=== PATIENT | female | born 1985 | race Two or more races ===

== ENCOUNTER 2025-10-25 10:52 | Outpatient (AMB) | payer OTHER, SELFPAY ==
--- NOTE | 2025-10-25 10:57 | A.OFFVIS_ITS ---
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 Her pain management history is extensive and includes physical therapy, pain management injections 15 years ago, and lumbar sympathetic blocks in 2004 at [facility], which provided temporary relief. She has undergone multiple procedures for her kidney-related pain, including nerve ablation around the kidney 4-5 years ago in [place], and another scraping procedure. She has a history of using pain pumps, including external ones that repeatedly came out and an intrathecal pain pump that was removed after 4-5 months due to a bad infection and a split catheter more than 15 years ago. Her current pain medications, which include oxycodone, Oxycontin, gabapentin and tizanidine are prescribed by her primary care provider and offer partial relief. She experiences opioid-induced constipation, which is managed with Linzess. 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 She has chronic right knee pain due to osteoarthritis and chondromalacia and has been told she needs a knee replacement but is too young. Her BMI is 45, and she has been advised to lose weight. A lumbar MRI showed mild degenerative disc disease at L5-S1 without significant central or neuroforaminal stenosis. Pain Description - Location: Pain is localized to the right lower back and radiates up to the right flank. - Quality: The pain is described as sharp, burning, pulsing, throbbing, and aching, with associated arch tightness. - Severity: Pain is rated as 9/10 in the morning and at night, improving to 5/10 during the midday with medication. - Onset and Timing: The pain has been chronic for years, starting around 2003, and is constant. - Exacerbating Factors: Pain is worsened by walking, standing, sitting, any movement, coughing, sneezing, and bending down. - Relieving Factors: Pain is partially relieved by her opioid medications, including Oxycontin, gabapentin, tizanidine, and oxycodone. - Associated Features: The patient avoids sleeping on her right side due to pain. - She has a history of the area turning purple and appearing more swollen than the left side. Pain Management - Analgesia: The patient is on chronic opioid therapy with Oxycontin, gabapentin, tizanidine and oxycodone, which she reports provides partial relief. - Her pain level ranges from 5/10 to 9/10. - Activities of Daily Living: Pain interferes with walking, standing, and sitting. - She avoids sleeping on her right side due to pain. - Adverse Effects: She reports constipation as a side effect of her opioid medications, for which she takes Linzess. - Aberrant Drug-Related Behaviors: No aberrant behaviors were discussed; her opioids are prescribed by her primary care physician. - Affect: The impact of pain affects her mood, social interactions and quality of life. 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 Localized osteoarthritis of right knee IBS (irritable bowel syndrome) Family history of cancer IUD (intrauterine device) in place Atypical squamous cells of undetermined significance (ASCUS) on Papanicolaou smear of cervix Asthma Alport syndrome Hypercholesterolemia Hypothyroidism Recurrent urinary tract infection Surgical History History of renal ablation S/P thoracic surgical sympathectomy Hx laparoscopic cholecystectomy Social History Alcohol intake: never Patient Tobacco Use Status: Never used Tobacco Review of Systems Narrative - Musculoskeletal: Reports chronic, constant pain in the right lower back and flank, described as sharp, burning, aching, pulsing, and throbbing. - Reports pain with bending down. - Reports chronic right knee pain. - Genitourinary: Reports recurrent UTIs. - Reports increased flank pain with urination due to the need to push. - Integumentary: Reports a history of the right flank area turning purple and appearing swollen. Const All systems reviewed & are unremarkable except as noted in HPI and below Physical Exam Vital Signs: Last Vital Signs Pulse 115 H 10/25/25 11:06 BP 129/80 10/25/25 11:06 Pulse Ox 98 10/25/25 11:06 Oxygen Delivery Method Room Air 10/25/25 11:06 BMI result Body Mass Index 45.2 General: Appears afebrile. Alert and oriented. Mood and affect appropriate. Follows and participates in conversation appropriately. Respiratory effort is unlabored. No cough. Able to transition from sit to stand unassisted. Ambulates with bilaterally normal heel strike and toe off. General: Yes CVA tenderness (right) Back/Spine/Pelvis Other: Limited lumbar ROM due to pain. Inspection reveals the right flank appears slightly more swollen than the left. On palpation, there is significant tenderness and allodynia over the right flank. No skin discolorations or temperature differences noted. Lumbar flexion and extension reproduces right sided low back and flank pain. Back: CVA tenderness (right) Cervical Spine: cervical ROM normal and No Cervical spine tenderness Thoracic/Lumbar Spine: thoracic and lumbar spine normal to inspection, Lasegue's sign negative, straight leg raise negative bilaterally, pain with thoraco-lumbar ROM, paraspinal muscle tenderness on the right in the upper lumbar and in the mid lumbar, thoraco-lumbar ROM limited, No thoracic spinal tenderness and No lumbar spinal tenderness Sacroiliac joints: bilaterally Results Reviewed Results Reviewed: Assessment & Plan Assessment & Plan (1) CRPS (complex regional pain syndrome type I): Code(s): G90.50 - Complex regional pain syndrome I, unspecified Category: Medical (2) Loin pain hematuria syndrome: Code(s): M54.50 - Low back pain, unspecified; R31.9 - Hematuria, unspecified Category: Medical (3) Chronic pain syndrome: Code(s): G89.4 - Chronic pain syndrome Category: Medical (4) technician terminal and repeater (current) use of opiate analgesic: Code(s): Z79.891 - technician terminal and repeater (current) use of opiate analgesic Category: Medical (5) Right knee pain: Code(s): M25.561 - Pain in right knee Category: Medical Plan For management of the patient's chronic right-sided flank pain secondary to loin hematuria syndrome and CRPS, the initial step will be to perform a lumbar sympathetic nerve block with local and fluoroscopy. This procedure will serve as a diagnostic tool and may provide therapeutic relief. Expectations, risks and benefits were reviewed. Patient is aware she will be contacted to schedule this procedure. We also discussed spinal cord stimulator (SCS) for a longer term pain relief. The workup for an SCS will involve a mandatory behavioral evaluation, which will be arranged via [employer]. Following psychological clearance, a one-week SCS trial will be conducted, and if successful, a permanent device will be implanted. Opioid medication management will remain with the patient's primary care physician. A medical release will be obtained to request records from [facility]. Management options for her right knee pain will be addressed at a future visit, potentially offering genicular RFA if positive response to nerve blocks. Daily physical activity, adequate hydration and weight optimization towards BMI<40 were encouraged. All questions and concerns have been answered and patient agreed with the treatment plan. Follow up after injection and sooner as needed. Patient was informed and verbally consented to the use of an ambient scribe for clinic note documentation during this visit. Coding Level of Care Code Est Pt Level 4 (42404) Diagnoses CRPS (complex regional pain syndrome type I) G90.50 Loin pain hematuria syndrome M54.50; R31.9 Chronic pain syndrome G89.4 technician terminal and repeater (current) use of opiate analgesic Z79.891 Right knee pain M25.561
[2025-10-25 11:06] VITALS: BP 129/80; PULSE 115; O2SAT 98; BMI 45.2
--- OUTSIDE RECORDS SUMMARY | 2025-10-25 12:45 | XMS_ITS | Encounter Summary ---
Author Organization [facility] Address [address] [place] [address] Phone Care Team Providers Care Tug Master Name Role Phone Alcides Ness MD Primary Care Provider Encounter Details Date Type Department Care Team (Late st Contact Info) Description 06/07/2023 Documentation Only [facility] [address] [place] [address] Alcides Ness MD [address], [place] Social History Tobacco Use Types Packs/Day Years Used Date Smoking Tobacco: Never Alcohol Use Standard Drinks/Week Comments No 0 (1 standard drink = 0.6 oz pur e alcohol) Comments Unknown Sex and Gender Information Value Date Recorded Sex Assigned at Not on file Legal Sex Female 4:36 PM EST Gender Identity Not on file Sexual Orientation Not on file documented as of this encounter Plan of Treatment Upcoming Encounters Date Type Department Care Team (Late st Contact Info) Description 12/26/2025 1:30 PM EST Office Visit [facility] [address] [place] [address] Gavino Tiwari MD [address] [place] [address] documented as of this encounter Visit Diagnoses Not on filedocumented in this encounter Care Teams Tug Master Relationship Specialty Start Date End Date Alcides Ness MD [address], [place] PCP - General Internal Medicine 08/04/23 documented as of this encounter
--- OUTSIDE RECORDS SUMMARY | 2025-10-25 12:45 | XMS_ITS | Encounter Summary ---
Author Organization [facility] Address [address] [place] [address] Phone Care Team Providers Care Documentation Specialist Name Role Phone Alcides Ness MD Primary Care Provider Encounter Details Date Type Department Care Team (Late Contact Info) Description 08/08/2024 Documentation Only [facility] [address] [place] [address] Nessa Hodge [address] [place] [address] Social History Tobacco Use Types Packs/Day Years [...] Visit [facility] [address] [place] [address] Gavino Tiwari MD [address] [place] [address] [place] [address] documented as of this encounter Visit Diagnoses Not on filedocumented in this encounter Care Teams Documentation Specialist Relationship Specialty Start Date End Date Alcides Ness MD [address] [place], [place] PCP - General Internal Medicine 08/04/23 documented as of this encounter
--- OUTSIDE RECORDS SUMMARY | 2025-10-25 12:45 | XMS_ITS | Clinical Summary ---
Author Organization [facility] [address] [facility] Address [address] [place] [address] Phone Care Team Providers Care Stave Block Splitter Name Role Phone Alcides Ness MD Primary Care Provider [phone] Allergies Active Allergy Reactions Criticality Noted Date Comments Adhesive Tape-Silicones 03/13/2025 Other Reaction(s): blisters Cephalexin 07/16/2022 Tongue swelling Ibuprofen 08/08/2024 Methadone 07/16/2022 Swelling and cant breathe Quetiapine 07/16/2022 Tongue swelling Medications amitriptyline (ELAVIL) 100 mg tablet Take 1 tablet (100 mg total) by mouth at bedtime. Active diazePAM (VALIUM) 5 mg tablet Take 5 mg by mouth every 8 hours as needed. Active gabapentin (NEURONTIN) 100 mg capsule Take 200 mg by mouth at bedtime. Active levothyroxine (SYNTHROID, LEVOTHROID) 25 mcg tablet Take 25 mcg by mouth daily. Active OLANZapine (ZyPREXA) 2.5 mg tablet Take 2.5 mg by mouth daily. Active oxyCODONE (ROXICODONE) 20 mg immediate release tablet Take 20 mg by mouth every 8 hours as needed. Active morphine (DON) 60 mg ER capsule Active pravastatin (PRAVACHOL) 10 mg tablet Take 10 mg by mouth daily. Active tiZANidine (ZANAFLEX) 4 mg capsule Take 4 mg by mouth daily as needed. Active DULoxetine (CYMBALTA) [address] capsule Take 1 capsule (20 mg total) by mouth 1 (one) time each day. Active Motegrity 2 mg tabletIndication s:Chronic constipation Take 2 mg by mouth 1 (one) time each day. 90 tablet 2 5 Active Additional Information Patient not taking.Reported on 05/23/2025 polyethylene glycol (MIRALAX) 17 gram packetIndication s:Chronic constipation Take 17 g by mouth 3 (three) times a day. 4590 g 3 5 Active albuterol HFA (PROAIR HFA ; PROVENTIL HFA ; VENTOLIN HFA) 90 mcg/actuation inhaler Inhale 1 puff by mouth every 6 (six) hours if needed for wheezing. 5 Active famotidine (PEPCID) 20 mg tablet Take 1 tablet (20 mg total) by mouth 1 (one) time each day. 5 Active fluticasone HFA (FLOVENT HFA) 110 mcg/actuation inhaler Inhale 1 puff by mouth 2 (two) times a day. 5 Active lamoTRIgine (LaMICtal) 25 mg tablet Take 1 tablet (25 mg total) by mouth 1 (one) time each day. 5 Active acetaminophen (TYLENOL) 500 mg tablet Take 1 tablet (500 mg total) by mouth every 6 (six) hours if needed for mild pain. 5 Active docusate sodium (COLACE) 100 mg capsule Take 1 capsule (100 mg total) by mouth 2 (two) times a day. 5 Active lubiprostone (AMITIZA) 24 mcg capsuleIndicatio ns:Chronic constipation Take 1 capsule (24 mcg total) by mouth 2 (two) times a day with meals. Take with meals 180 each 3 5 Active polyethylene glycol (Golytely) 236-22.74-6.74 -5.86 gram solution Take 4L by mouth once for one dose. May substitue any PEG. Starting at 2PM the day before your procedure drink 1 8oz glasses at your own pace until you complete half of the gallon. Finish 2nd half of the gallon at 8PM. 4000 mL 5 Active bisacodyL (DULCOLAX) 5 mg EC tablet Take 2 tablets by mouth right before beginning bowel prep. See instructions provided by the office 2 tablet 5 Active linaCLOtide (Linzess) 145 mcg capsuleIndicatio ns:Irritable bowel syndrome, unspecified type Take 1 capsule (145 mcg total) by mouth 1 (one) time each day. 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5mL ( Fluzone High-dose) 65yo and older 09/14/2017 Influenza trivalent, 0.5mL, preservative free (Fluarix; FluLaval; Fluzone) ages 6mo and older (Afluria) 3 years and older 11/16/2024,08/19/2020,08/03/2019 Influenza trivalent, with pr eservative (Fluzone; Afluria) 6mo and older 10/12/2023,11/29/2022,08/24/2021,11/30,09/15/2017,11/10/2016,08/07/2015 ,07/30/2014,07/20/2013,10/16/2012,01/05,09/28/2007 Pneumococcal polysaccharide 23 valent (Pneumovax 23) 2yo and older 01/19/2010 Td, Unspecified 12/21/2010 Tdap Tetanus diptheria acell ular pertussis (Boostrix; Adacel) 7yo and older 02/10/2024 Surgical History Surgery Date Site/Laterality Comments CHOLECYSTECTOMY PROCEDURE: [place] LAPAROSCOPY SURG CHOLECYSTECTOMY COLONOSCOPY 05/07/2020 - 06/06/2020 poor prep, unremarkable random colo biopsy Dr. 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 Family History Medical History Relation Name Comments Colon polyps Mother Colon cancer Mother's Brother Irritable bowel syndrome Sister 1 Irritable bowel syndrome Sister 2 Relation Name Status Comments Mother Alive Mother's Brother Alive Sister 1 Alive Sister 2 Alive Social History Tobacco Use Types Packs/Day Years Used Date Smoking Tobacco: Never Smokeless Tobacco: Never Tobacco Cessation:Counseling Given: Not Answered Alcohol Use Standard Drinks/Week Comments Never 0 (1 standard drink = 0.6 oz pur e alcohol) Interpersonal Safety Answer Date Record ed Physical Abuse Unrecognized value 05/30/2025 Verbal Abuse Unrecognized value 05/30/2025 Comments No Sex and Gender Information Value Date Recorded Sex Assigned at Not on file Legal Sex Female 5:02 AM EST Gender Identity Not on file Sexual Orientation Not on file Last Filed Vital Signs Vital Sign Reading Time Taken Comments Blood Pressure 115/63 05/30/2025 3:50 PM EDT Pulse 90 05/30/2025 3:50 PM EDT Temperature 36.9 C (98.5 F) 05/30/2025 2:01 PM EDT Respiratory Rate 15 05/30/2025 3:50 PM EDT Oxygen Saturation 96% 05/30/2025 3:50 PM EDT Inhaled Oxygen Concentration - - Weight 99.8 kg (220 lb) 05/30/2025 2:01 PM EDT Height 154.9 cm (5' 1 ) 05/30/2025 2:01 PM EDT Body Mass Index 41.57 05/30/2025 2:01 PM EDT Plan of Treatment Health Maintenance Due Date Last Done Comments Breast Cancer Screening 1985 Drug Screen 1984 Non-Opioid Controlled Substance Agreement 1984 Hepatitis B Vaccines (1 of 3 - 19+ 3-dose series) 2003 Cervical Cancer Screening: Pap Smear 2005 Pneumococcal Vaccine: Pediatrics (0 to 5 Years) and At-Risk Patients (6 to 49 Years) (2 of 2 - PCV) 01/19/2011 01/19/2010 HPV Vaccines (1 - 3-dose SCDM series) 2011 Cholesterol Screening (Lipid Panel) 10/10/2022 HIV Screening 10/10/2022 Hepatitis C Screening 10/10/2022 Medicare Annual Wellness Visit 10/10/2022 Social Influencers of Health Screening 10/10/2022 Depression Screening 11/07/2024 COVID-19 Vaccine ( - 2024- season) 2025 10/13/2021 Influenza Vaccine (#1) 2025 , 10/12/2023, 11/29/2022, Additional history exists Colorectal Cancer Screening: Colonoscopy 05/30/2030 05/30/2025 DTaP,Tdap,and Td Vaccines (3 - Td or Tdap) 02/09/2034 02/10/2024, 12/21/2010 RSV Immunization Adult Patients (1 - 1-dose 75+ series) 2059 HIB Vaccines Aged Out No longer eligi ble based on patient's age to complete this topic Hepatitis A Vaccines Aged Out No long er eligible based on patient's age to complete this topic IPV Vaccines Aged Out No longer eligi ble based on patient's age to complete this topic MMR Vaccines Aged Out No longer eligi ble based on patient's age to complete this topic Meningococcal ACWY Vaccine Aged Out N o longer eligible based on patient's age to complete this topic Meningococcal B Vaccine Aged Out No l onger eligible based on patient's age to complete this topic RSV Immunization Patients Under 20 months Aged Out No longer eligible based on patient's age to complete this topic Varicella Vaccines Aged Out No longer eligible based on patient's age to complete this topic Procedures Procedure Name Priority Date/Time Associated Diagnosis Comments COLONOSCOPY Routine 05/30/2025 3:29 PM EDT Chronic constipation Family history of polyps in the colon from Last 3 Months or Most Recently Relevant to Health Maintenance Results * COLONOSCOPY Anesthesia - MAC; [facility] ENDOSCOPY (05/30/2025 3:29 PM EDT) Anatomical Region Laterality Modality Endoscopy 05/30/2025 3:12 PM EDT Impressions 05/30/2025 3:30 PM EDT - The entire examined colon is normal on direct and retroflexion views. - No specimens collected. Recommendation: - Repeat colonoscopy in 5 years for screening purposes. Narrative 05/30/2025 3:30 PM EDT [facility] GI Patient Name: Dony Juares Procedure Date: 05/30/2025 3:12 PM Date of : 1985 Age: 39 Room: ROOM 16 Gender: Female Note Status: Finalized Attending MD: Agustin Hurley MD, Procedure Date No Time: 05/30/2025 Procedure: Colonoscopy Indications: Colon cancer screening in patient at increased risk: Family history of 1st-degree relative with colon polyps before age 60 years, Screening in patient at increased risk: Family history of 1st-degree relative with colorectal cancer before age 60 years Providers: Agustin Hurley MD Referring MD: Agustin Hurley MD Medicines: Propofol per Anesthesia Complications: No immediate complications. Estimated Blood Loss: Estimated blood loss: none. Procedure: Pre-Anesthesia Assessment: - ASA Grade Assessment: II - A patient with mild systemic disease. - After reviewing the risks and benefits, the patient was deemed in satisfactory condition to undergo the procedure. After I obtained informed consent, the scope was passed under direct vision. Throughout the procedure, the patient's blood pressure, pulse, and oxygen saturations were monitored continuously.The Olympus Pediatric Colonoscope was introduced through the anus and advanced to the cecum, identified by appendiceal orifice and ileocecal valve. The colonoscopy was performed without difficulty. The patient tolerated the procedure well. The quality of the bowel preparation was adequate. Findings: The perianal and digital rectal examinations were normal. The entire examined colon appeared normal on direct and retroflexion views. Procedure Code(s): --- Professional --- G0105, Colorectal cancer screening; colonoscopy on individual at high risk Diagnosis Code(s): --- Professional --- Z83.71, Family history of colonic polyps Z80.0, Family history of malignant neoplasm of digestive organs CPT copyright 2020 [employer]. All rights reserved. The codes documented in this report are preliminary and upon field kiln burner review may be revised to meet current compliance requirements. Agustin Hurley MD 05/30/2025 3:30:36 PM This report has been signed electronically.Agustin Hurley MD Number of Addenda: 0 Note Initiated On: 05/30/2025 3:12 PM Scope In: Scope Out: Endoscopy Department at [facility] - [address] [place] [phone] Procedure Note Agustin Hurley MD - 05/30/2025 [facility] GI Patient Name: Dony Juares Procedure Date: 05/30/2025 3:12 PM Date of : 1985 Age: 39 Room: ROOM 16 Gender: Female Note Status: Finalized Attending MD: Agustin Hurley MD, Procedure Date No Time: 05/30/2025 Procedure: Colonoscopy Indications: Colon cancer screening in patient at increasedrisk: Family history of 1st-degree relative with colon polyps before age 60 years, Screening in patient at increased risk: Family history of 1st-degreerelative with colorectal cancer before age 60 years Providers: Agustin Hurley MD Referring MD: Agustin Hurley MD Medicines: Propofol per Anesthesia Complications: No immediate complications. Estimated Blood Loss: Estimated blood loss: none. Procedure: Pre-Anesthesia Assessment: - ASA Grade Assessment: II - A patient with mild systemic disease. - After reviewing the risks and benefits, thepatient was deemed in satisfactory condition to undergo the procedure. After I obtained informed consent, the scope was passed under direct vision. Throughout theprocedure, the patient's blood pressure, pulse, and oxygen saturations were monitored continuously.The Olympus Pediatric Colonoscope was introduced through theanus and advanced to the cecum, identified byappendiceal orifice and ileocecal valve. The colonoscopy was performed without difficulty. The patient tolerated the procedure well. The quality of the bowel preparation was adequate. Findings: The perianal and digital rectal examinations were normal. The entire examined colon appeared normal on direct and retroflexion views. Procedure Code(s): --- Professional --- G0105, Colorectal cancer screening; colonoscopy on individual at high risk Diagnosis Code(s): --- Professional --- Z83.71, Family history of colonic polyps Z80.0, Family history of malignant neoplasm of digestive organs CPT copyright 2020 [employer]. All rights reserved. The codes documented in this report are preliminary and upon field kiln burner reviewmay be revised to meet current compliance requirements. Agustin Hurley MD 05/30/2025 3:30:36 PM This report has been signed electronically.Agustin Hurley MD Number of Addenda: 0 Note Initiated On: 05/30/2025 3:12 PM Scope In: Scope Out: Endoscopy Department at [facility] - [address] [place] [phone] IMPRESSION: - The entire examined colon is normal on direct and retroflexion views. - No specimens collected. Recommendation: - Repeat colonoscopy in 5 years for screeningpurposes. Agustin Hurley MD GI~PROCEDURE ORDERABLES Fin al Result from Last 3 Months or Most Recently Relevant to Health Maintenance Insurance [facility] MED[facility] Member Subscriber Plan / Payer (Ef fective 2024-Present) Name:DONY JUARES Relation to Subscriber:Self Name:Dony Juares Payer ID:[id number] Group ID:[id number] Type:Not on file Address: [facility] [address] [place] [address] Care Teams Stave Block Splitter Relationship Specialty Start Date End Date Alcides Ness MD [address] [place] [phone] PCP - General Internal Medicine 06/25/22
--- OUTSIDE RECORDS SUMMARY | 2025-10-25 12:45 | XMS_ITS | Encounter Summary ---
Author Organization [facility] Address [address] [place] [address] Phone Care Team Providers Care Head Up Operator Name Role Phone Alcides Ness MD Primary Care Provider Encounter Details Date Type Department Care Team (Late Contact Info) Description 12/31/2024 Documentation Only [facility] [address] [place] [address] Nessa Hodge [address] [place] [address] Social History Tobacco Use Types [...] Visit [facility] [address] [place] [address] Gavino Tiwari MD [address] [place] [address] [place] [address] documented as of this encounter Visit Diagnoses Not on filedocumented in this encounter Care Teams Head Up Operator Relationship Specialty Start Date End Date Alcides Ness MD [address] [place], [place] PCP - General Internal Medicine 08/04/23 documented as of this encounter
--- OUTSIDE RECORDS SUMMARY | 2025-10-25 12:45 | XMS_ITS | Encounter Summary ---
Author Organization [facility] Address [address] [place] [address] Phone Care Team Providers Care Spine Supervisor Name Role Phone Alcides Ness MD Primary Care Provider Encounter Details Date Type Department Care Team (Late Contact Info) Description 06/07/2023 Documentation Only [facility] [address] [place] [address] James Dubois MD [address] [place] [address] Social History Tobacco Use Types [...] Visit [facility] [address] [place] [address] Gavino Tiwari MD [address] [facility] [address] [place] [address] documented as of this encounter Visit Diagnoses Not on filedocumented in this encounter Care Teams Spine Supervisor Relationship Specialty Start Date End Date Alcides Ness MD [address] [place], [place] PCP - General Internal Medicine 08/04/23 documented as of this encounter
--- OUTSIDE RECORDS SUMMARY | 2025-10-25 12:45 | XMS_ITS | Encounter Summary ---
Author Organization [facility] Address [address] [place] [address] Phone Care Team Providers Care Strike On Machine Operator Name Role Phone Alcides Ness MD Primary Care Provider Encounter Details Date Type Department Care Team (Late Contact Info) Description 12/31/2024 Documentation Only [facility] [address] [place] [address] Nessa Hodge [address] [place] [address] Social History Tobacco Use Types [...] Visit [facility] [address] [place] [address] Gavino Tiwari MD [address] [place] [address] [place] [address] documented as of this encounter Visit Diagnoses Not on filedocumented in this encounter Care Teams Strike On Machine Operator Relationship Specialty Start Date End Date Alcides Ness MD [address] [place], [place] PCP - General Internal Medicine 08/04/23 documented as of this encounter
--- OUTSIDE RECORDS SUMMARY | 2025-10-25 12:45 | XMS_ITS | Clinical Summary ---
Author Organization [facility], Address [address] [place] [address] [place] [address] Phone Care Team Providers Care Conveyor Technician Name Role Phone Alcides Ness MD Primary Care Provider Allergies Active Allergy Reactions Criticality Noted Date Comments Cephalexin Hives,Other (see comments) 08/08/2024 may take amoxil Ibuprofen 08/08/2024 Methadone Other (see comments) 08/08/2024 Other Reaction(s): swollen and cant breath Quetiapine Other (see comments) 08/08/2024 Active Problems Problem Noted Date Diagnosed Date Other abnormal clinical findings Overview (08/08/2024): reflex sympathetic dystrophy, nutcracker syndrome History of recurrent urinary tract infection Hypercholesterolemia Hypothyroidism Loin pain-hematuria syndrome Immunizations Immunization Administration Dates Next Due Influenza Split High Dose Preservative Free IM 1 11/14/2016 Pfizer SARS-COV-2 10/13/2021 Pneumococcal Polysaccharide 01/19/2010 Td, Unspecified 12/21/2010 Family History Medical History Relation Comments Hypertension Father Heart disease Mother Stroke Mother Relation Status Comments Father Mother Social History Tobacco Use Types Packs/Day Years [...] Sign Reading Time Taken Comments Blood Pressure 136/84 08/09/2024 1:53 PM EDT Pulse 120 08/09/2024 1:53 PM EDT Temperature - - Respiratory Rate - - Oxygen Saturation - - Inhaled Oxygen Concentration - - Weight 81.6 kg (180 lb) 10/01/2019 12:00 PM EST Height 154.9 cm (5' 1 ) 10/01/2019 12:00 PM EST Body Mass Index 34.01 10/01/2019 12:00 PM EST Plan of Treatment Upcoming Encounters Date Type Department Care Team (Late st Contact Info) Description 12/26/2025 1:30 PM EST Office Visit [facility] [place], [address] [place] [address] Gavino Tiwari MD [address] [facility] [place] [address] Health Maintenance Due Date Last Done Comments Hepatitis B Vaccine (1 of 3 - 19+ 3-dose series) 2003 Pneumococcal Vaccine: Peds ( 0 to 5 Years) and At-Risk Patients (6 to 49 Years) (2 of 2 - PCV) 01/19/2011 01/19/2010 Influenza Vaccine (#1) 2025 5, 10/12/2023, 11/29/2022, Additional history exists Pneumococcal Vaccine: 50+ Years Discontinued 0 Insurance [facility] One Care Dual SNP ([id number]) Care Teams Conveyor Technician Relationship Specialty Start Date End Date Alcides Ness MD [address] [place], [place] PCP - General Internal Medicine 08/04/23
--- OUTSIDE RECORDS SUMMARY | 2025-10-25 12:45 | XMS_ITS | Encounter Summary ---
Author Organization [facility] Address [address] [place] [address] Phone Care Team Providers Care Executive Housekeeper Name Role Phone Alcides Ness MD Primary Care Provider Encounter Details Date Type Department Care Team (Late Contact Info) Description 08/08/2024 Documentation Only [facility] [address] [place] [address] Nessa Hodge [address] [place] [address] Social History Tobacco Use Types [...] Visit [facility] [address] [place] [address] Gavino Tiwari MD [address] [place] [address] [place] [address] documented as of this encounter Visit Diagnoses Not on filedocumented in this encounter Care Teams Executive Housekeeper Relationship Specialty Start Date End Date Alcides Ness MD [address] [place], [place] PCP - General Internal Medicine 08/04/23 documented as of this encounter
--- OUTSIDE RECORDS SUMMARY | 2025-10-25 12:45 | XMS_ITS | Encounter Summary ---
Author Organization [facility] Address [address] [place] [address] Phone Care Team Providers Care Retina Subspecialist Name Role Phone Alcides Ness MD Primary Care Provider [phone] Encounter Details Date Type Department Care Team (Late Contact Info) Description 08/08/2024 Documentation Only [facility] [address] [place] [address] Nessa Hodge [address] [place] [address] Social History Tobacco Use Types [...] Visit [facility] [address] [place] [address] Gavino Tiwari MD [address] [place] [address] [place] [address] documented as of this encounter Visit Diagnoses Not on filedocumented in this encounter Care Teams Retina Subspecialist Relationship Specialty Start Date End Date Alcides Ness MD [address] [place], [place] PCP - General Internal Medicine 08/04/23 documented as of this encounter
--- OUTSIDE RECORDS SUMMARY | 2025-10-25 12:45 | XMS_ITS | Encounter Summary ---
Author Organization [facility] Address [address] [place] [address] Phone Care Team Providers Care Insurance Policy Clerk Name Role Phone Alcides Ness MD Primary Care Provider Encounter Details Date Type Department Care Team (Late Contact Info) Description 12/31/2024 Documentation Only [facility] [address] [place] [address] Nessa Hodge [address] [place] [address] Social History Tobacco Use Types [...] Visit [facility] [address] [place] [address] Gavino Tiwari MD [address] [place] [address] [place] [address] documented as of this encounter Visit Diagnoses Not on filedocumented in this encounter Care Teams Insurance Policy Clerk Relationship Specialty Start Date End Date Alcides Ness MD [address] [place], [place] PCP - General Internal Medicine 08/04/23 documented as of this encounter
--- OUTSIDE RECORDS SUMMARY | 2025-10-25 12:45 | XMS_ITS | Encounter Summary ---
Author Organization [facility] Address [address] [place] [address] Phone Care Team Providers Care Stock Saw Operator Name Role Phone Alcides Ness MD Primary Care Provider Encounter Details Date Type Department Care Team (Late Contact Info) Description 12/31/2024 Documentation Only [facility] [address] [place] [address] Nessa Hodge [address] [place] [address] Social History Tobacco Use Types [...] Visit [facility] [address] [place] [address] Gavino Tiwari MD [address] [place] [address] [place] [address] documented as of this encounter Visit Diagnoses Not on filedocumented in this encounter Care Teams Stock Saw Operator Relationship Specialty Start Date End Date Alcides Ness MD [address] [place], [place] PCP - General Internal Medicine 08/04/23 documented as of this encounter
--- OUTSIDE RECORDS SUMMARY | 2025-10-25 12:45 | XMS_ITS | Encounter Summary ---
Author Organization [facility] Address [address] [place] [address] Phone Care Team Providers Care Agricultural Extension Specialist Name Role Phone Alcides Ness MD Primary Care Provider Encounter Details Date Type Department Care Team (Late Contact Info) Description 08/08/2024 Documentation Only [facility] [address] [place] [address] Nessa Hodge [address] [place] [address] Social History Tobacco Use Types [...] Visit [facility] [address] [place] [address] Gavino Tiwari MD [address] [place] [address] [place] [address] documented as of this encounter Visit Diagnoses Not on filedocumented in this encounter Care Teams Agricultural Extension Specialist Relationship Specialty Start Date End Date Alcides Ness MD [address] [place], [place] PCP - General Internal Medicine 08/04/23 documented as of this encounter
--- OUTSIDE RECORDS SUMMARY | 2025-10-25 12:45 | XMS_ITS | Clinical Summary ---
Author Organization [facility] Address [address] [facility] [address] [place] [phone] Phone Care Team Providers Care Library Page Name Role Phone Unknown, Unknown Primary Care Provider Frederic peters Social History Tobacco Use Types Packs/Day Years Used Date Smoking Tobacco: Never Assessed Comments Unknown Sex and Gender Information Value Date Recorded Sex Assigned at Not on file Legal Sex Female 7:29 PM EST Gender Identity Not on file Sexual Orientation Not on file Plan of Treatment Not on file Medical Devices [place] [id number] [employer] [place] [address] [employer] REPLACEMENT MEDICARE REPLACEMENT MEDICARE REPLACEMENT MEDICARE REPLACEMENT [place] [address] [employer]ACEMENT Care Teams Library Page Relationship Specialty Start Date End Date Unknown, Unknown, PCP - General 09/07/17 Additional Source Comments The information contained in this document represents components of the legal health record. It is not the complete legal health record.[facility]
--- OUTSIDE RECORDS SUMMARY | 2025-10-25 12:45 | XMS_ITS | Encounter Summary ---
Author Organization [facility] Address [address] [place] [address] Phone Care Team Providers Care Security Manager Name Role Phone Alcides Ness MD Primary Care Provider Encounter Details Date Type Department Care Team (Late Contact Info) Description 12/31/2024 Documentation Only [facility] [address] [place] [address] Nessa Hodge [address] [place] [address] Social History Tobacco Use Types [...] Visit [facility] [address] [place] [address] Gavino Tiwari MD [address] [place] [address] [place] [address] documented as of this encounter Visit Diagnoses Not on filedocumented in this encounter Care Teams Security Manager Relationship Specialty Start Date End Date Alcides Ness MD [address] [place], [place] PCP - General Internal Medicine 08/04/23 documented as of this encounter
--- OUTSIDE RECORDS SUMMARY | 2025-10-25 12:45 | XMS_ITS | Encounter Summary ---
Author Organization [facility] Address [address] [place] [address] Phone Care Team Providers Care Jigmaker Name Role Phone Alcides Ness MD Primary Care Provider Encounter Details Date Type Department Care Team (Late st Contact Info) Description 06/07/2023 Documentation Only [facility] [address] [place] [address] Alcides Ness MD [address] [place], [place] Social History Tobacco Use Types Packs/Day [...] Visit [facility] [address] [place] [address] Gavino Tiwari MD [address] [facility] [place] [address] documented as of this encounter Visit Diagnoses Not on filedocumented in this encounter Care Teams Jigmaker Relationship Specialty Start Date End Date Alcides Ness MD [address] [place], [place] PCP - General Internal Medicine 08/04/23 documented as of this encounter
== END 2025-10-25 11:46 | disposition home or self-care (01) ==
LOC: HO.PMC 10:53
PROVIDERS: PCP Internal Medicine; Visit Provider Nurse Practitioner Family
DX: G90.50 Complex regional pain syndrome I, unspecified (principal); M54.50 Low back pain, unspecified; R31.9 Hematuria, unspecified; G89.4 Chronic pain syndrome; Z79.891 Long term (current) use of opiate analgesic; M25.561 Pain in right knee
CPT/HCPCS: 99214

== ENCOUNTER → 2025-10-25 10:52 | Outpatient (BNVA) | payer OTHER, SELFPAY | PROVIDERS: PCP Internal Medicine; Visit Provider Nurse Practitioner Family | DX: G89.4 Chronic pain syndrome (principal); G90.50 Complex regional pain syndrome I, unspecified; M54.50 Low back pain, unspecified; R31.9 Hematuria, unspecified; M25.561 Pain in right knee; Z79.891 Long term (current) use of opiate analgesic | CPT/HCPCS: 99212 ==